=== PATIENT | female | born 1960 ===

== ENCOUNTER 2016-06-23 13:55 | Emergency (ER) | payer OTHER ==
[2016-06-23 14:27] VITALS: BP 150/89
--- NOTE | 2016-06-23 16:39 | ED Physician Documentation ---
History of Present Illness - Stated complaint Stated Complaint: R MIDDLE FINGER LAC - Chief complaint Chief Complaint: Laceration - Additonal information Additional information: R third finger lac on piece of sheet glass (not shattered just sharp edge) Review of Systems Skin: reports: Laceration (s) Immunocompromised: denies: Immunocompromised PD PAST MEDICAL HISTORY - Past Medical History Past Medical History: No - Past Surgical History Past Surgical History: No - Present Medications Home Medications: Ambulatory Orders Medication Instructions Recorded Confirmed No Known Home Medications [No 06/23/16 06/23/16 Known Home Medications] - Allergies Allergies/Adverse Reactions: Allergies Allergy/AdvReac Type Severity Reaction Status Date / Time No Known Drug Allergies Allergy Verified 06/23/16 14:27 - Social History Does the pt smoke?: No Smoking Status: Never smoker Does the pt drink ETOH?: Yes Does the pt have substance abuse?: No - Immunizations Immunizations are current?: Yes PD ED PE NORMAL - Vitals Vital signs reviewed: Yes - Derm Derm: Other (2 cm lac radial aspect 3rd PIP, full ROM s weakness, MSV intact, carefully inspected to base and no glass seen or palpated) Results - Vitals Vitals: Vital Signs - 24 hr 06/23/16 14:25 Temperature 36.6 C Heart Rate 74 Respiratory 16 Rate Blood Pressure 150/89 H O2 Saturation 96 Oxygen O2 Source Room air Procedures - Laceration (location) hand Length in cm: 2 Wound type: Linear Neurovascular status: Sensory intact, Motor intact Tendon involvement: Tendon intact Anesthesia: Marcaine 0.5% (2 (half dig block)) Wound Preparation: Irrigated copiously NS (tech), Wound explored, To the base. No: FB identified Skin layer closure: Nylon, Size #-0 - enter number (4), Sutures - enter # (3) Other: Patient tolerated well, No complications, Neurovascular intact, Dressing applied, Tetanus UTD Complexity: Simple Departure - Departure Disposition: 01 Home, Self Care Clinical Impression: Laceration Condition: Good Instructions: ED Laceration Hand Comments: Sutures out 10 days. Keep wound clean. Apply antibiotic ointment twice a day Wear the splint to prevent bending the finger and breaking the wound open Even with careful wound care, some wounds get infected - return for any redness drainage streaking or increasing pain And follow up with your PMD about your blood pressure - it was high today
== END 2016-06-23 16:54 | disposition home or self-care (01) ==
LOC: EDBD → ED 13:55 → MERGE 13:55 → ED 16:54
DX: S61.212A Laceration without foreign body of right middle finger without damage to nail, initial encounter (principal); W25.XXXA Contact with sharp glass, initial encounter
CPT/HCPCS: 12001; 99282; 99283

== ENCOUNTER 2016-09-27 16:00 | Outpatient (CLI) | payer OTHER ==
--- NOTE | 2016-09-28 19:58 | Mammography Report ---
DIGITAL SCREENING MAMMOGRAM: 09/27/2016 CLINICAL INDICATION: A 56-year-old for screening. COMPARISON: 11/2007 TECHNIQUE: Routine CC and MLO projections as well as bilateral laterally exaggerated craniocaudal vi ews were obtained of the breasts. FINDINGS: Parenchymal tissue within both breasts is heterogeneously dense, which may lower the sensi tivity of mammography; however, there are no dominant masses, suspicious microcalcifications, or seco ndary signs of malignancy. In comparison to the previous studies, there are no significant changes. ASSESSMENT: NO MAMMOGRAPHIC EVIDENCE OF MALIGNANCY. NO SIGNIFICANT INTERVAL CHANGES. RECOMMENDATION: Screening mammography is recommended annually. BIRADS category 1 - negative. STANDARD QUALIFYING STATEMENTS 1. This examination was reviewed with the aid of Computed-Aided Detection (CAD). 2. A negative or benign imaging report should not delay biopsy if clinically suspicious findings are present. Consider surgical consultation if warranted. More than 5% of cancers are not identified b y imaging. 3. Dense breasts may obscure an underlying neoplasm. JOB #: [id number] EXT JOB #:[id number]
== END 2016-09-27 16:01 | disposition home or self-care (01) ==
LOC: DI.N 16:00
PROVIDERS: ATTEND Family Medicine
DX: Z12.31 Encounter for screening mammogram for malignant neoplasm of breast (principal)
CPT/HCPCS: 77067

== ENCOUNTER 2017-05-24 07:54 | Day surgery (SDC) | payer OTHER ==
[2017-05-24] MEDS ORDERED: LACTATED RINGERS 1,000 ML IV ONE ×3 (08:16→08:20)
[2017-05-24] MEDS ORDERED: MIDAZOLAM 2 MG/2 ML VIAL IVP ONE (08:43)
[2017-05-24] MEDS ORDERED: fentaNYL 100 MCG/2 ML VIAL IVP ONE (08:43)
[2017-05-24 09:34] VITALS: BP 116/73
== END 2017-05-24 07:55 | disposition home or self-care (01) ==
LOC: SDS 07:54
PROVIDERS: ATTEND Surgery
PROC: 0DBP8ZX Excision of Rectum, Via Natural or Artificial Opening Endoscopic, Diagnostic (ICD-10-PCS; 2017-05-24)
PROC: 3E0H8GC Introduction of Other Therapeutic Substance into Lower GI, Via Natural or Artificial Opening Endoscopic (ICD-10-PCS; 2017-05-24)
PROC: 0DBH8ZX Excision of Cecum, Via Natural or Artificial Opening Endoscopic, Diagnostic (ICD-10-PCS; principal; 2017-05-24 09:00)
DX: Z12.11 Encounter for screening for malignant neoplasm of colon (principal); D12.0 Benign neoplasm of cecum; D12.8 Benign neoplasm of rectum; K64.8 Other hemorrhoids
CPT/HCPCS: 45381; 45385; J7120